=== PATIENT | female | born 1960 | race Caucasian/White ===

== ENCOUNTER 2017-01-01 22:55 | Emergency (ER) | payer BC ==
[2017-01-02] MEDS ORDERED: Ketorolac INJ* 30 MG/ML 1 ML VIAL IV PUSH ONE (00:28)
[2017-01-02] MEDS ORDERED: NS 0.9% 1000 ML* 1,000 ML IV ONE (00:28)
[2017-01-02] MEDS ORDERED: Morphine INJ* 4 MG/ML 1 ML SYRINGE IV ONE (00:28)
[2017-01-02] MEDS ORDERED: HYDROmorphone* 1 MG/ML 1 ML SYR IV SLOW PU ONE ×2 (01:11→03:04)
[2017-01-02] MEDS ORDERED: Ondansetron INJ* 2 MG/ML VIAL IV ONE (01:11)
[2017-01-02 01:29] LABS: Urine Bacteria Absent (Absent); Urine Bilirubin Negative (Negative); Urine Glucose 1+(50 mg/dL) (Negative); Urine Nitrite Negative (Negative)
[2017-01-02 01:31] LABS: Hematocrit 34 % (35-47); Hemoglobin 10.7 g/dl (12.0-16.0); Mean Corpuscular HGB Conc 32 g/dl (31-36); Mean Corpuscular Hemoglobin 24 pg (27-31); Mean Corpuscular Volume 74 fL (80-97); Mean Platelet Volume 9 um3 (7.4-10.4); Red Blood Count 4.54 10^6/ul (4.0-5.4); Red Cell Distribution Width 18 % (10.5-15); White Blood Count 4.8 10^3/ul (3.5-10.8)
[2017-01-02 01:34] LABS: ALT 23 U/L (7-52); Albumin 3.9 g/dL (3.2-5.2); Alkaline Phosphatase 118 U/L (34-104); BUN/Creatinine Ratio 21.6 (8-20); Blood Urea Nitrogen 16 mg/dL (6-24); CO2 Carbon Dioxide 26 mmol/L (22-32); Calcium 8.9 mg/dL (8.6-10.3); Chloride 100 mmol/L (101-111); EGFR African American 104.4 (>60); EGFR Non-African American 81.2 (>60); Globulin 3.3 g/dL (2-4); Glucose 236 mg/dL (70-100); Lipase 81 U/L (11.0-82.0); Sodium 132 mmol/L (133-145); Total Protein 7.2 g/dL (6.4-8.9)
[2017-01-02 01:35] LABS: Comments Flag Yes
[2017-01-02 01:36] LABS: Add Diff/Slide Review? Slide Review Added
--- NOTE | 2017-01-02 01:44 | ED ---
GI/ HPI - HPI Summary HPI Summary: 56F presents with right sided flank pain today. She denies any injury to area. She states her pain travels down to her groin. She denies any hematuria, dysuria, frequency, or urgency. She denies any history of kidney stones. She denies any n/v/dc or fevers. She had gallbladder removed. She has never had this pain before. She states sitting makes it worst and walking around makes it better. She is in extreme pain. - History of Current Complaint Chief Complaint: EDFlankPain Time Seen by Provider: 01/02/17 00:19 Stated Complaint: BACK PAIN Pain Intensity: 8 - Allergy/Home Medications Allergies/Adverse Reactions: Allergies Allergy/AdvReac Type Severity Reaction Status Date / Time No Known Allergies Allergy Verified 01/02/17 01:26 PMH/Surg Hx/FS Hx/Imm Hx Endocrine/Hematology History: Reports: Hx Diabetes Denies: Hx Thyroid Disease, Other Endocrine/Hematological Disorders Cardiovascular History: Reports: Hx Hypercholesterolemia, Hx Hypertension Denies: Hx Pacemaker/ICD, Other Cardiovascular Problems/Disorders Respiratory History: Reports: Hx Pneumonia - several times, but not this winter. , Hx Sleep Apnea - cpap Denies: Hx Asthma, Hx Chronic Obstructive Pulmonary Disease (COPD), Other Respiratory Problems/Disorders GI History: Reports: Hx Gall Bladder Disease Denies: Hx Ulcer, Other GI Disorders History: Denies: Hx Dialysis, Other Problems/Disorders Musculoskeletal History: Reports: Other Musculoskeletal History - Shoe inserts for pain in or above heel Sensory History: Reports: Hx Contacts or Glasses - for reading, Hx Glaucoma - Has sx for glaucoma2011 Denies: Hx Hearing Aid, Other Sensory Impairments Opthamlomology History: Reports: Hx Contacts or Glasses - for reading, Hx Glaucoma - Has sx for glaucoma, 2011 Denies: Other Sensory Impairments Psychiatric History: Reports: Hx Depression - untreated Denies: Hx Panic Disorder, Hx Suicide Attempt, Hx of Violent Episodes Against Others, Hx Substance Abuse, Other Psychiatric Issues/Disorders - Cancer History Cancer Type, Location and Year: BREAST Hx Chemotherapy: No Hx Radiation Therapy: Yes - Surgical History Surgery Procedure, Year, and Place: csection. cholecystectomy. hysterectomy. skin tumor removal. Left Breast lumpectomy Hx Anesthesia Reactions: No Infectious Disease History: No Infectious Disease History: Denies: Hx Hepatitis, Hx Human Immunodeficiency Virus (HIV), Hx Tuberculosis , Traveled Outside the [place] in Last 30 Days - Family History Known Family History: Positive: Diabetes - Social History Substance Use Type: Reports: None Review of Systems Negative: Fever Negative: Chest Pain Negative: Shortness Of Breath Negative: Vomiting, Diarrhea, Nausea Positive: flank pain. Negative: dysuria, discharge, frequency All Other Systems Reviewed And Are Negative: Yes Physical Exam Triage Information Reviewed: Yes Vital Signs On Initial Exam: Initial Vitals Temp Pulse Resp BP Pulse Ox 98.2 F 76 16 174/103 100 01/01/17 23:00 01/01/17 23:00 01/01/17 23:00 01/01/17 23:00 01/01/17 23:00 Vital Signs Reviewed: Yes Appearance: Positive: Pain Distress Skin: Positive: Warm, Dry Head/Face: Positive: Normal Head/Face Inspection Eyes: Positive: Normal, Conjunctiva Clear Respiratory/Lung Sounds: Positive: Clear to Auscultation, Breath Sounds Present Cardiovascular: Positive: Normal, RRR Abdomen Description: Positive: Nontender, Soft, CVA Tenderness (R), Other: - tender over right kidney with palpation. Negative: CVA Tenderness (L) Bowel Sounds: Positive: Present Diagnostics - Vital Signs Vital Signs Temp Pulse Resp BP Pulse Ox 01/02/17 01:24 98.9 F 60 18 161/107 97 01/02/17 01:19 18 01/02/17 00:48 18 01/01/17 23:00 98.2 F 76 16 174/103 100 - Laboratory Lab Results: Lab Results 01/02/17 01/02/17 01/02/17 Range/Units 00:50 00:50 01:24 WBC 4.8 (3.5-10.8) 10^3/ul RBC 4.54 (4.0-5.4) 10^6/ul Hgb 10.7 L (12.0-16.0) g/dl Hct 34 L (35-47) % MCV 74 L (80-97) fL MCH 24 L (27-31) pg MCHC 32 (31-36) g/dl RDW 18 H (10.5-15) % Plt Count 115 L (150-450) 10^3/ul MPV 9 (7.4-10.4) um3 Neut % (Auto) 51.8 (38-83) % Lymph % (Auto) 29.8 (25-47) % [place] % (Auto) 8.8 (1-9) % Eos % (Auto) 8.4 H (0-6) % Baso % (Auto) 1.2 (0-2) % Absolute Neuts (auto) 2.5 (1.5-7.7) 10^3/ul Absolute Lymphs (auto) 1.4 (1.0-4.8) 10^3/ul Absolute Monos (auto) 0.4 (0-0.8) 10^3/ul Absolute Eos (auto) 0.4 (0-0.6) 10^3/ul Absolute Basos (auto) 0.1 (0-0.2) 10^3/ul Absolute Nucleated RBC 0 10^3/ul Nucleated RBC % 0.1 Sodium 132 L (133-145) mmol/L Potassium TNP Chloride 100 L (101-111) mmol/L Carbon Dioxide 26 (22-32) mmol/L Anion Gap TNP BUN 16 (6-24) mg/dL Creatinine 0.74 (0.51-0.95) mg/dL Est GFR ( Amer) 104.4 (>60) Est GFR (Non-Af Amer) 81.2 (>60) BUN/Creatinine Ratio 21.6 H (8-20) Glucose 236 H (70-100) mg/dL Calcium 8.9 (8.6-10.3) mg/dL Total Bilirubin 0.40 (0.2-1.0) mg/dL AST TNP ALT 23 (7-52) U/L Alkaline Phosphatase 118 H (34-104) U/L C-React Prot High Sens 1.58 mg/L Total Protein 7.2 (6.4-8.9) g/dL Albumin 3.9 (3.2-5.2) g/dL Globulin 3.3 (2-4) g/dL Albumin/Globulin Ratio 1.2 (1-3) Lipase 81 (11.0-82.0) U/L Urine Color Yellow Urine Appearance Cloudy Urine pH 6.0 (5-9) Ur Specific [place] 1.019 (1.010-1.030) Urine Protein Negative (Negative) Urine Ketones Negative (Negative) Urine Blood Negative (Negative) Urine Nitrate Negative (Negative) Urine Bilirubin Negative (Negative) Urine Urobilinogen Negative (Negative) Ur Leukocyte Esterase 2+ H (Negative) Urine WBC (Auto) 2+(11-20/hpf) H (Absent) Urine RBC (Auto) 1+(3-5/hpf) H (Absent) Ur Squamous Epith Cells Present H (Absent) Urine Bacteria Absent (Absent) Urine Glucose 1+(50 mg/dl) H (Negative) Result Diagrams: 01/02/17 01:24 01/02/17 02:10 Lab Statement: Any lab studies that have been ordered have been reviewed, and results considered in the medical decision making process. - CT ab CT Interpretation: Positive (See Comments) - probable cirrhosis with portal venous HTN without ascitest. sclerotic left iliac lesion CT Interpretation Completed By: Radiologist REESE Course/Dx - Course Course Of Treatment: 56F presents with right side flank pain that radiates to groin today. denies any injury. denies any history of kidney stones. denies any dysuria, fever, hematuria, n/v/d. on exam is walking around and appears in pain distress. tender to palpation of right kidney area, nontender abdomen. labs wbc normal. crp normal. u/a shows leuk esterase. discussed with patient and would like to treat with antibiotic for potential UTI/pyelo. pain may also be muscular in nature. will have follow up with primary for cirrhosis and lesion on iliac. does have DEXA scan scheduled for today. patient understands and agrees with plan - Diagnoses Differential Diagnoses - Female: Pyelonephritis, Urinary Tract Infection, Ureteral Calculi Provider Diagnoses: Right flank pain, UTI (urinary tract infection) Discharge - Discharge Plan Condition: Good Disposition: HOME Prescriptions: Ciprofloxacin TAB* [Cipro 500 MG TAB*] 500 mg PO BID #13 tab oxyCODONE/Acetamin 5/325 MG* [Percocet 5/325 TAB*] 1 tab PO Q6H PRN #6 tab MDD 4 PRN Reason: Pain Patient Education Materials: Flank Pain (ED) Forms: *Work Release Referrals: Arcadio Jenkins MD [Primary Care Provider] - Additional Instructions: Take antibiotic twice a day for 7 days Take ibuprofen for pain, use narcotic for break through pain Use OTC laxative for constipation Follow up with primary within 5 days to discuss cirrhosis Return to ED if develop fever or any new or worsening symptoms
[2017-01-02] MEDS ORDERED: Ciprofloxacin TAB* 500 MG PO ONE (03:37)
[2017-01-02] MEDS ORDERED: oxyCODONE/Acetamin 5/325 MG* TAB PO ONE (03:37)
[2017-01-02 04:08] VITALS: BP 146/88
--- NOTE | 2017-01-02 08:11 | RAD ---
CLINICAL HISTORY: Right flank pain. Relevant surgical history includes cholecystectomy and hysterectomy. COMPARISON: None TECHNIQUE: Noncontrast CT examination of the abdomen and pelvis from the lung bases through the initial tuberosities. FINDINGS: VISUALIZED LUNG BASES: Mild groundglass opacification is seen at the bilateral lower lobes which could be seen in the setting of congestive heart failure, pneumonitis, ARDS or drug toxicity. There is no pleural effusion. ABDOMEN AND PELVIS: Evaluation of the solid organs and vasculature is limited without intravenous contrast. The liver is mildly enlarged measuring up to 21 cm in greatest cephalocaudal dimension (coronal image 51). There is nodularity of the surface of the left lobe of the liver (axial image 51). The portal vein is mildly enlarged measuring up to 1.6 cm in diameter. The spleen is mildly enlarged measuring up to 13 cm in greatest axial dimension. The pancreas and adrenal glands are grossly normal in appearance. The gallbladder is surgically absent. The kidneys are normal in appearance without focal mass, calcification or signs of hydronephrosis. Evaluation of the gastrointestinal tract is limited without oral contrast. The small and large bowel are not distended.The patient's normal appendix is identified in the right lower quadrant measuring 6 mm in diameter (image 106). There is no gross retroperitoneal or mesenteric lymphadenopathy. The uterus is surgically absent. The mildly calcified abdominal aorta and iliac arteries are normal in course and diameter. Degenerative changes include multilevel loss of intervertebral disc height involving the lower thoracic and lumbar spine. At the left ischio there is a 1.6 cm medullary soft tissue lesion replacing bone and causing cortical thinning (axial image 108). There are multiple patchy medullary lucencies involving the right iliac bone (image 118 through 147). IMPRESSION: 1. No renal calculi or signs of hydronephrosis. 2. CT findings are consistent with hepatic cirrhosis and portal venous hypertension. 3. Nonspecific medullary lucencies involving the bilateral iliac bones as described above. There are no prior CT examinations available for comparison to allow comment on chronicity. As clinically warranted further characterization could BE made with either contrast-enhanced MRI of the pelvis or scintigraphic bone scan. 4. Additional chronic, degenerative and iatrogenic findings described in the body of the report.
== END 2017-01-02 03:55 | disposition home or self-care (01) ==
LOC: ED 22:55
DX: N39.0 Urinary tract infection, site not specified (principal); R10.84 Generalized abdominal pain
CPT/HCPCS: 36415; 74176; 80053; 81003; 81015; 83690; 85025; 86141; 87077; 87086; 96374; 96375; 99283; A9270-GY; J1170; J1885; J2270; J2405

== ENCOUNTER 2017-06-12 19:02 | Emergency (ER) | payer BC ==
[2017-06-12 19:20] VITALS: BP 127/103
[2017-06-12] MEDS ORDERED: Aspirin Low Dose CHEW TAB* 81 MG PO ONE (20:01)
--- NOTE | 2017-06-21 16:55 | UC ---
Michael Pierson Nikita, scribed for Mirella Ventura DO on 06/12/17 at 1955 . Cardiac HPI - HPI Summary HPI Summary: This patient is a 56 year old F presenting to [facility] with a chief complaint of central and L-sided CP last night s/p colonoscopy. The CC is described as aching and cramping. The patient rates the pain 10/10 in severity. Symptoms aggravated by nothing. Symptoms alleviated by nothing. Patient reports LUQ abdominal pain, fever, chills, dizziness (light-headed), RUBIO (frontal), SOB, bilateral neck pain, throat pain, and pain under ribs and to the back, pain in groin area, fatigue, difficulty swallowing, and no bowel movement. Pt reports she cant even sit on a toilet. Patient denies N/V. Pt had a gastroscopy and an endoscopy yesterday, where her oxygen was low and her heart stopped twice. - History of Current Complaint Chief Complaint: UCAbdominalPain Stated Complaint: ABDOMINAL PAIN Time Seen by Provider: 06/12/17 19:24 Hx Obtained From: Patient Onset/Duration: Sudden Onset, Lasting Days, Still Present Timing: Constant Initial Severity: Severe Current Severity: Severe Pain Intensity: 10 Chest Pain Location: Discrete at: - central and L-sided CP, under ribs, across back Character: Dull/Aching Aggravating Factor(s): Nothing Alleviating Factor(s): Nothing Associated Signs & Symptoms: Positive: Chest Pain - Patient reports LUQ abdominal pain, fever, chills, dizziness (light-headed), RUBIO (frontal), SOB, bilateral neck pain, throat pain, and pain under ribs and to the back, pain in groin area, fatigue, difficulty swallowing, and no bowel movement. Pt reports she cant even sit on a toilet. Patient denies N/V. - Allergy/Home Medications Allergies/Adverse Reactions: Allergies Allergy/AdvReac Type Severity Reaction Status Date / Time No Known Allergies Allergy Verified 01/02/17 01:26 PMH/Surg Hx/FS Hx/Imm Hx - Additional Past Medical History Additional PMH: HLD, sleep apnea Endocrine History: Diabetes Cardiovascular History: Hypertension Cancer History: Breast Cancer - Surgical History Surgical History: Yes Surgery Procedure, Year, and Place: csection. cholecystectomy. hysterectomy. skin tumor removal. Left Breast lumpectomy - Family History Known Family History: Positive: Hypertension, Diabetes - Social History Alcohol Use: Rare Substance Use Type: None Smoking Status (MU): Never Smoked Tobacco - Immunization History Most Recent Influenza Vaccination: Review of Systems Constitutional: Fever, Chills, Fatigue ENT: Other - bilateral neck pain, throat pain, difficulty swallowing Respiratory: Shortness Of Breath Cardiovascular: Chest Pain - central and L-sided Gastrointestinal: Abdominal Pain - LUQ, Other - pain under ribs and to the back , pain in groin area, no bowel movement; denies N/V Neurological: Headache - frontal, Other - dizziness (light-headed) All Other Systems Reviewed And Are Negative: Yes Physical Exam Triage Information Reviewed: Yes Appearance: Pain Distress - mild, Obese - morbid obesity Vital Signs: Initial Vital Signs Temp 98.0 F 06/12/17 19:17 Pulse 83 06/12/17 19:17 Resp 18 06/12/17 19:17 BP 127/103 06/12/17 19:17 Pulse Ox 100 06/12/17 19:17 Vital Signs Reviewed: Yes Eyes: Positive: Conjunctiva Clear. Negative: Discharge ENT: Positive: Hearing grossly normal, Other: - normal voice; tender to palpation of bilateral anterior neck and TMs. Negative: Muffled/hoarse voice Neck exam: Normal Neck: Positive: Supple Respiratory: Positive: Lungs clear, Normal breath sounds, No respiratory distress, No accessory muscle use Cardiovascular: Positive: RRR, No Murmur Abdomen Description: Positive: Soft, Other: - Tender to palpation over upper abdomen. Negative: Distended, Guarding Bowel Sounds: Positive: Present, Hyperactive Musculoskeletal Exam: Normal Neurological Exam: Other - A&Ox3, CN II-XII INTACT, SENSORY MOTOR INTACT, REFLEXES INTACT, NO CEREBELLAR SIGNS, FACIAL SYMMETRY, NEGATIVE ROMBERG, NORMAL GAIT Neurological: Positive: Alert, Muscle Tone Normal Psychological Exam: Normal Psychological: Positive: Age Appropriate Behavior Skin Exam: Other - flushed skin Diagnostics - EKG Cardiac Rate: NL - 69 bpm; taken at 1935; abnormal R-wave progression, no ST changes - Assessment/Plan Course Of Treatment: This patient is a 56 year old F presenting to [facility] with a chief complaint of central and L-sided CP last night s/p colonoscopy. The CC is described as aching and cramping. The patient rates the pain 10/10 in severity. Symptoms aggravated by nothing. Symptoms alleviated by nothing. Patient reports fever, chills, dizziness (light-headed), RUBIO (frontal), SOB, bilateral neck pain , throat pain, and pain under ribs and to the back, pain in groin area, fatigue , difficulty swallowing, and no bowel movement. Pt reports she cant even sit on a toilet. Patient denies N/V. Pt had a gastroscopy and an endoscopy yesterday, where her oxygen was low and her heart stopped twice. EKG reveals sinus rhythm at 69 bpm, abnormal R-wave progression, and no ST changes. Medications reviewed this visit. High blood pressure noted. Pt will be discharged and sent to [facility]. - Clinical Impression Provider Diagnoses: Abdominal pain. Dyspnea. Dizziness. CP. Rule out ACS. Elevated blood pressure without diagnosis of hypertension. Discharge - Discharge Plan Condition: Stable Disposition: TRANS HIGHER LVL OF CARE FAC Referrals: Arcadio Jenkins MD [Primary Care Provider] - Additional Instructions: Your blood pressure was elevated at this visit. That does not mean you have hypertension, it is probably due to your current condition. Please follow up with your primary care provider. The documentation as recorded by the Michael paredes Nikita accurately reflects the service I personally performed and the decisions made by me, Mirella Ventura DO.
== END 2017-06-12 20:35 | disposition short-term general hospital (02) ==
LOC: UCEAST 19:02
DX: R10.12 Left upper quadrant pain (principal); R07.89 Other chest pain; R06.00 Dyspnea, unspecified; R42 Dizziness and giddiness; R50.9 Fever, unspecified; E78.5 Hyperlipidemia, unspecified; E11.9 Type 2 diabetes mellitus without complications; I10 Essential (primary) hypertension; Z85.3 Personal history of malignant neoplasm of breast; Z90.49 Acquired absence of other specified parts of digestive tract; Z90.710 Acquired absence of both cervix and uterus; E66.01 Morbid (severe) obesity due to excess calories
CPT/HCPCS: 93005; 99213; A9270-GY; G0463

== ENCOUNTER 2017-06-12 20:54 | Emergency (ER) | payer BC ==
[2017-06-12] MEDS ORDERED: Ketorolac INJ* 30 MG/ML 1 ML VIAL IV ONE (21:25)
[2017-06-12] MEDS ORDERED: NS 0.9% 1000 ML* 1,000 ML IV ONE (21:25)
[2017-06-12 22:48] LABS: Hematocrit 41 % (35-47); Hemoglobin 13.6 g/dl (12.0-16.0); Mean Corpuscular HGB Conc 34 g/dl (31-36); Mean Corpuscular Hemoglobin 28 pg (27-31); Mean Corpuscular Volume 84 fL (80-97); Mean Platelet Volume 9 um3 (7.4-10.4); Red Blood Count 4.85 10^6/ul (4.0-5.4); Red Cell Distribution Width 15 % (10.5-15); White Blood Count 6.6 10^3/ul (3.5-10.8)
--- NOTE | 2017-06-12 22:48 | ED ---
Delgado Pierson Alfonso, scribed for Baron Wharton MD on 06/12/17 at 2127 . Abdominal Pain/Female - HPI Summary HPI Summary: This patient is a 56 year old F BIBA from [facility] to [facility] accompanied by family with a chief complaint of LUQ abdominal pain since 1100 today. The patient rates the pain 10/10 in severity. Symptoms aggravated by nothing. Symptoms alleviated by nothing. Patient reports SOB, right shoulder pain, fever, frontal headache, dizziness, and back pain. Patient denies N/V/D, and urinary symptoms. Patient had an endoscopy and colonoscopy yesterday at [facility]. - History of Current Complaint Chief Complaint: EDAbdPain Stated Complaint: ABD PAIN/COMING FROM [facility] Time Seen by Provider: 06/12/17 21:12 Hx Obtained From: Patient Onset/Duration: Sudden Onset, Lasting Hours - 1100, Still Present Timing: Constant Severity Currently: Severe Pain Intensity: 10 Pain Scale Used: 0-10 Numeric Location: Discrete At: LUQ Aggravating Factor(s): Nothing Alleviating Factor(s): Nothing Associated Signs and Symptoms: Positive: Other: - SOB, right shoulder pain, fever, frontal headache, dizziness, and back pain. Patient denies N/V/D, and urinary symptoms. Allergies/Adverse Reactions: Allergies Allergy/AdvReac Type Severity Reaction Status Date / Time No Known Allergies Allergy Verified 01/02/17 01:26 PMH/Surg Hx/FS Hx/Imm Hx Endocrine/Hematology History: Reports: Hx Diabetes - type 2 dm Denies: Hx Thyroid Disease, Other Endocrine/Hematological Disorders Cardiovascular History: Reports: Hx Hypercholesterolemia, Hx Hypertension Denies: Hx Pacemaker/ICD, Other Cardiovascular Problems/Disorders Respiratory History: Reports: Hx Pneumonia - several times, but not this winter. , Hx Sleep Apnea - cpap Denies: Hx Asthma, Hx Chronic Obstructive Pulmonary Disease (COPD), Other Respiratory Problems/Disorders GI History: Reports: Hx Gall Bladder Disease Denies: Hx Ulcer, Other GI Disorders History: Denies: Hx Dialysis, Other Problems/Disorders Musculoskeletal History: Reports: Other Musculoskeletal History - Shoe inserts for pain in or above heel Sensory History: Reports: Hx Contacts or Glasses - for reading, Hx Glaucoma - Has sx for glaucoma2011 Denies: Hx Hearing Aid, Other Sensory Impairments Opthamlomology History: Reports: Hx Contacts or Glasses - for reading, Hx Glaucoma - Has sx for glaucoma, 2011 Denies: Other Sensory Impairments Psychiatric History: Reports: Hx Depression - untreated Denies: Hx Panic Disorder, Hx Suicide Attempt, Hx of Violent Episodes Against Others, Hx Substance Abuse, Other Psychiatric Issues/Disorders - Cancer History Cancer Type, Location and Year: BREAST Hx Chemotherapy: No Hx Radiation Therapy: Yes - Surgical History Surgery Procedure, Year, and Place: csection. cholecystectomy. hysterectomy. skin tumor removal. Left Breast lumpectomy Hx Anesthesia Reactions: No Infectious Disease History: No Infectious Disease History: Denies: Hx Hepatitis, Hx Human Immunodeficiency Virus (HIV), Hx Tuberculosis , Traveled Outside the [place] in Last 30 Days - Family History Known Family History: Positive: Diabetes - Social History Alcohol Use: Rare Substance Use Type: Reports: None Smoking Status (MU): Never Smoked Tobacco Review of Systems Positive: Fever Positive: Shortness Of Breath Positive: Abdominal Pain. Negative: Vomiting, Diarrhea, Nausea Positive: no symptoms reported Positive: Other - right shoulder pain, back pain Neurological: Other - dizziness Positive: Headache All Other Systems Reviewed And Are Negative: Yes Physical Exam Triage Information Reviewed: Yes Vital Signs On Initial Exam: Initial Vitals Temp Pulse Resp BP Pulse Ox 98.4 F 67 20 156/104 100 06/12/17 21:05 06/12/17 21:05 06/12/17 21:05 06/12/17 21:05 06/12/17 21:05 Vital Signs Reviewed: Yes Appearance: Positive: Well-Appearing, No Pain Distress, Obese Skin: Positive: Warm, Skin Color Reflects Adequate Perfusion, Dry Head/Face: Positive: Normal Head/Face Inspection Eyes: Positive: Normal ENT: Positive: Normal ENT inspection Neck: Positive: Supple, Nontender Respiratory/Lung Sounds: Positive: Clear to Auscultation, Breath Sounds Present Cardiovascular: Positive: RRR Abdomen Description: Positive: Soft, Other: - Epigastric and LUQ tenderness Bowel Sounds: Positive: Present Musculoskeletal: Positive: Normal Neurological: Positive: Normal, Sensory/Motor Intact, Alert, Oriented to Person Place, Time, CN Intact II-III Psychiatric: Positive: Normal, Affect/Mood Appropriate Diagnostics - Vital Signs Vital Signs Temp Pulse Resp BP Pulse Ox 06/12/17 21:05 98.4 F 67 20 156/104 100 - Laboratory Lab Statement: Any lab studies that have been ordered have been reviewed, and results considered in the medical decision making process. Abdominal Pain Fem Course/Dx - Course Course Of Treatment: Ms. Jarquin is awaiting labs and CT. - Diagnoses Provider Diagnoses: Abdominal pain Discharge - Discharge Plan Condition: Stable Disposition: OTHER Discharge Disposition Comment: Shift change turned over to Dr. Veliz The documentation as recorded by the Delgado paredes Alfonso accurately reflects the service I personally performed and the decisions made by me, Baron Wharton MD.
[2017-06-12 22:51] LABS: Urine Bacteria Absent (Absent); Urine Bilirubin Negative (Negative); Urine Glucose 3+(>=500 mg/dL) (Negative); Urine Nitrite Negative (Negative)
[2017-06-12 23:02] LABS: BUN/Creatinine Ratio 20.5 (8-20); C Reactive Protein 3.9 mg/L (< 5.00); Calcium 9.2 mg/dL (8.6-10.3); EGFR African American 91.5 (>60); EGFR Non-African American 71.1 (>60); Globulin 3.4 g/dL (2-4); Potassium 3.6 mmol/L (3.5-5.0); Total Bilirubin 0.9 mg/dL (0.2-1.0); Total Protein 7.4 g/dL (6.4-8.9)
[2017-06-12] MEDS ORDERED: Iodixanol* (CONTRAST) 320 MG/ML 100 ML SDV IV ONE (23:34)
[2017-06-13] MEDS ORDERED: Cephalexin CAP* 500 MG PO ONE (01:53)
[2017-06-13] MEDS ORDERED: HYDROcodone/ACETAMIN 5-325 MG* 1 TAB PO ONE (02:16)
[2017-06-13 02:34] VITALS: BP 181/93
--- NOTE | 2017-06-13 06:56 | ED ---
Chandra Pierson Rebecca, scribed for Lucy Veliz MD on 06/13/17 at 0150 . Progress - Progress Note Progress Note: Pt was signed out, pending disposition, awaiting CT Abd/Pel. - Results/Orders Results/Orders: CT Abd/Pel, as read by radiologist, reveals: 1. Progressive lytic and blastic metastatic disease to the bones as above. 2. Hepatosplenomegaly with nodular liver suggesting potential cirrhosis. Correlate with laboratory value and clinically. 3. No free air seen. No focal bowel pathology identified. 4. Continued left adrenal nodularity, potentially adenoma given density on prior CT. Correlate clinically and followup as indicated. ED physician reviewed radiology report and agrees. Re-Evaluation - Re-Evaluation First Eval Re-Evaluation Time: 01:51 Comment: Shared the CT findings with the pt that there arrears to be lytic and metastatic disease to the ribs and bony structure. I gave her a copy of the report and strongly emphasized the imporane of following up with her doctor and oncologist for follow up of possible metastatic disease. Also shared that she has a UTI. Course/Dx - Course Course Of Treatment: Pt was signed out by Dr. Wharton, pending disposition, awaiting CT Abd/Pel. CT Abd/Pel results as above. Shared the CT findings with the pt that there arrears to be lytic and metastatic disease to the ribs and bony structure. I gave her a copy of the report and strongly emphasized the imporane of following up with her doctor and oncologist for follow up of possible metastatic disease. Also shared that she has a UTI. Pt's condition is stable and she will be D/C to home with Dx of UTI and abdominal pain with Rx for Keflex. She is agreeable with this plan. Elevated BP noted. - Diagnoses Provider Diagnoses: Abdominal pain, UTI (urinary tract infection) The documentation as recorded by the Chandra paredes Rebecca accurately reflects the service I personally performed and the decisions made by me, Lucy Veliz MD.
--- NOTE | 2017-06-13 07:19 | RAD ---
INDICATION: Left-sided abdominal pain status post colonoscopy one day ago, history of breast carcinoma.. COMPARISON: Comparison is made to prior CT of the abdomen from January 02, 2017. TECHNIQUE: A CT scan of the abdomen and pelvis was performed with intravenous and oral contrast following intravenous injection of 136 ml of Visipaque 320 nonionic contrast. Contiguous axial sections were obtained from the lung bases through the symphysis pubis. Images were reconstructed in the coronal and sagittal planes. FINDINGS: There is mild dependent bilateral lower lobe subsegmental atelectasis. No pleural effusion is present. The liver is mildly enlarged with a nodular contour suggestive of cirrhosis. The liver is decreased in attenuation consistent with fatty infiltration. The spleen is mildly enlarged without focal abnormality. The patient is status post cholecystectomy. The pancreas appears to be within normal limits. There is a nodule in the left adrenal gland measuring 1.4 x 1.5 cm in size which is unchanged from the prior study. This is relatively low-density on the prior CT favoring a benign adenoma. The kidneys are normal in size without evidence for renal calculi or hydronephrosis. No significant focal renal abnormality is seen. The aorta is normal in caliber with mild calcific plaque present. No significant enlarged retroperitoneal lymph nodes are seen. There is a small hiatal hernia. The stomach, small and large bowel appear nondistended. The appendix is within normal limits. There are a few scattered diverticuli. There is no evidence for diverticulitis or colitis. The patient is status post hysterectomy. No free intraperitoneal air or fluid is seen. There is a lytic lesion in the L5 vertebral body which measures 1.7 x 1.0 cm in size which is new from the prior exam. There is a mixed lytic and sclerotic lesion present within the medial aspect of the left iliac bone which has progressed from the prior exam. There is also a mixed lytic and sclerotic lesion in the right iliac bone which extends into the acetabulum. There is a mixed lytic and sclerotic lesion in the right posterior 10th rib. IMPRESSION: 1. MULTIPLE MIXED LYTIC AND SCLEROTIC OSSEOUS LESIONS WHICH HAVE PROGRESSED FROM THE PRIOR STUDY CONSISTENT WITH METASTATIC DISEASE. 2. HEPATOSPLENOMEGALY AND FINDINGS CONSISTENT WITH CIRRHOSIS. 3. STATUS POST CHOLECYSTECTOMY AND HYSTERECTOMY. 4. LEFT ADRENAL NODULE, UNCHANGED NONSPECIFIC ALTHOUGH IMAGING CHARACTERISTICS FAVORING A ADENOMA. THIS CAN BE FURTHER EVALUATED WITH AN MRI OF THE ADRENAL GLANDS WITHOUT CONTRAST IF CLINICALLY NEEDED. 5. NO EVIDENCE FOR ACUTE FINDING OR CAUSE FOR THE PATIENT'S ABDOMINAL PAIN IS SEEN.
== END 2017-06-13 02:34 | disposition home or self-care (01) ==
LOC: ED 20:54
DX: N39.0 Urinary tract infection, site not specified (principal); R10.9 Unspecified abdominal pain
CPT/HCPCS: 36415; 74177; 80053; 81003; 81015; 83605; 83690; 85025; 86140; 87040; 87086; 99285; A9270-GY; J1885; Q9967